=== PATIENT | female | born 1970 | race Caucasian/White ===

== ENCOUNTER 2019-09-03 15:04 | Outpatient (CLI) | payer OTHER, SELFPAY ==
--- NOTE | 2019-09-03 15:10 | CTR_ITS ---
PROCEDURE INFORMATION: Exam: CT Right Lower Extremity Without Contrast, Ankle Exam date and time: 09/03/2019 3:10 PM Age: 49 years old Clinical indication: Right; Patient HX: RT ankle pain x 1 year, ; additional info: Sinus tarsi syndrome. Submitted neutral and supination axials and sag and cor, 3d images of both scans. TECHNIQUE: Imaging protocol: CT of the Right lower extremity without contrast was performed. Exam focused on the ankle. 3D rendering: MIP and/or 3D reconstructed images were created by the technologist. Radiation optimization: All CT scans at this facility use at least one of these dose optimization techniques: automated exposure control; mA and/or kV adjustment per patient size (includes targeted exams where dose is matched to clinical indication); or iterative reconstruction. COMPARISON: No relevant prior studies available. RADIATION DOSE METRICS: Total DLP (mGy-cm): 910.18 FINDINGS: Bones/joints: By CT, no bony pathology evident. Soft tissues: By CT, no soft tissue mass or edema evident in the sinus tarsi. The tibialis posterior tendon appears thickened distally with central linear low-density suggesting a distal split tear. Adjacent focal 2 mm calcification. Soft tissue density surrounds the abnormal distal tibialis posterior tendon which could represent chronic scarring versus more acute edema/inflammation. Possible associated underlying medial ligamentous injury. (series 2, axial image 27 through 43). CT/CT ankle RT wo con* [id number] IMPRESSION: 1.) The tibialis posterior tendon appears thickened distally with central linear low-density suggesting a distal split tear. Adjacent focal 2 mm calcification. Soft tissue density surrounds the abnormal distal tibialis posterior tendon which could represent chronic scarring versus more acute edema/inflammation. Possible associated underlying medial ligamentous injury. (series 2, axial image 27 through 43). Radiation Dose CTDIVOL = (mGy): DLP = 910.18 (mGy-cm)
== END 2019-09-03 15:05 | disposition home or self-care (01) ==
LOC: RADWPI 15:09
PROVIDERS: Family Provider Family Medicine; PCP Family Medicine; Visit Provider Podiatrist Primary Podiatric Medicine
DX: M25.571 Pain in right ankle and joints of right foot (principal)
CPT/HCPCS: 73700

== ENCOUNTER 2021-06-08 08:27 | Outpatient (CLI) | payer OTHER, SELFPAY ==
--- NOTE | 2021-06-08 08:33 | MM_ITS ---
WS: [id number] BILATERAL 3D TOMOSYNTHESIS DIGITAL SCREENING MAMMOGRAPHY WITH CAD CLINICAL INFORMATION: SCREENING HISTORY: Screening mammogram. No current complaints. COMPARISON: TECHNIQUE: Bilateral CC and MLO views. FINDINGS: Scattered fibroglandular densities bilaterally. 6 mm asymmetric density superior quadrant RIGHT breas t best seen on the MLO view. This appears new from previous. Recommend spot compression views and ult rasound for further evaluation. LEFT breast is unchanged and unremarkable. MM/[place] [id number] IMPRESSION: BI-RADS: 0-Incomplete: Need additional imaging evaluation FOLLOW UP: Need Additional Imaging Recommend RIGHT breast diagnostic spot compression views and ultrasound for fur ther evaluation.
== END 2021-06-08 08:28 | disposition home or self-care (01) ==
PROVIDERS: PCP Family Medicine; Visit Provider Family Medicine
DX: Z12.31 Encounter for screening mammogram for malignant neoplasm of breast (principal)
CPT/HCPCS: 77063; 77067

== ENCOUNTER 2021-06-28 19:09 | Emergency (ER) | payer OTHER, SELFPAY ==
[2021-06-28 19:18] VITALS: BP 141/91; PULSE 107; RESP 20; TEMP 36.5; O2SAT 100; BMI 41.5
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
[2021-06-28 21:43] VITALS: BP 123/85; PULSE 93; RESP 16; TEMP 36.7; O2SAT 96
== END 2021-06-28 21:44 | disposition home or self-care (01) ==
PROVIDERS: Emergency Provider Physician Assistant; PCP Family Medicine
DX: S80.11XA Contusion of right lower leg, initial encounter (principal); S13.9XXA Sprain of joints and ligaments of unspecified parts of neck, initial encounter; V89.2XXA Person injured in unspecified motor-vehicle accident, traffic, initial encounter
CPT/HCPCS: 72125; 73590; 99282

== ENCOUNTER 2021-07-05 08:39 | Outpatient (CLI) | payer OTHER, SELFPAY ==
--- NOTE | 2021-07-05 08:44 | MM_ITS ---
WS: [id number] RIGHT 3D TOMOSYNTHESIS DIGITAL MAMMOGRAPHY WITH CAD CLINICAL INFORMATION: ABNORMAL MAMMOGRAM COMPARISON: June 08, 2021 TECHNIQUE: 3 views of the right breast were obtained. FINDINGS: Scattered fibroglandular densities of the right breast. Previously described 5 mm nodular density upp er outer RIGHT breast partially resolves on the spot compression views. Ultrasound is pending. ULTRASOUND BREAST RIGHT TECHNIQUE: Ultrasound right breast focused area of concern. CLINICAL INFORMATION: ABNORMAL MAMMOGRAM FINDINGS: Ultrasound RIGHT breast at the 9 to 12:00 position. Multiple subcutaneous echogenic lesions likely in cidental benign lipomas. No suspicious abnormalities. No lesions to target for biopsy. MM/[place] [id number] IMPRESSION: BI-RADS: 2-Benign FOLLOW UP: 1 Year Follow-up Recommend return to annual screening mammography.
== END 2021-07-05 08:40 | disposition home or self-care (01) ==
PROVIDERS: PCP Family Medicine; Visit Provider Family Medicine
DX: R92.8 Other abnormal and inconclusive findings on diagnostic imaging of breast (principal)
CPT/HCPCS: 76642; 77061

== ENCOUNTER → 2022-10-05 08:02 | Outpatient (BNVA) | payer OTHER, BC, SELFPAY | PROVIDERS: PCP Family Medicine; Visit Provider Podiatrist Foot & Ankle Surgery | DX: M21.6X1 Other acquired deformities of right foot; M19.071 Primary osteoarthritis, right ankle and foot; M72.2 Plantar fascial fibromatosis; M77.31 Calcaneal spur, right foot | CPT/HCPCS: 73630 ==